=== PATIENT | male | born 1995 | race Caucasian/White ===

== ENCOUNTER 2016-11-09 12:04 | Emergency (ER) | payer BC ==
[2016-11-09 12:10] VITALS: O2SAT 98
--- NOTE | 2016-11-09 12:21 | EDPHY ---
H & P Stated Complaint: bca yesterday /5 pm fell inj l ribs/abd swelling?hematoma l lower abd Time Seen by Provider: 11/09/16 12:11 HPI/ROS: CHIEF COMPLAINT: Left rib pain and left abdominal pain HISTORY OF PRESENT ILLNESS: 21-year-old male generally healthy complaining of left-sided abdominal and left rib pain after he was at the [employer] yesterday at approximately 5:00 p.m., went off a jump and at a height of 10-15 feet and landed directly on his left side in the location of his lower ribs and left upper abdomen. He has abrasions to same location. Minimal pain at that time however over the evening and this morning he has noticed diffuse abdominal pain. He was helmeted and did impact his head with no loss of consciousness, no amnesia. Denies: Hematuria, dyspnea, neck pain or injury, peripheral paresthesia, nausea, vomiting, melena, hematochezia, bowel movement abnormality , weakness, numbness, genitalia or straddle injury. REVIEW OF SYSTEMS: A ten point review of systems was performed and is negative with the exception of the items mentioned in the HPI PAST MEDICAL/SURGICAL HISTORY: no anticoagulant use, no relevant medical/ surgical history SOCIAL HISTORY: Student PHYSICAL EXAM 1) GENERAL: Well-developed, well-nourished, alert and oriented. Appears to be in no acute distress. Answering questions appropriately. 2) HEAD: Normocephalic, atraumatic 3) HEENT: Pupils equal, round, reactive to light bilaterally. Negative Horners. Nasopharynx, oropharynx, clear. No deformity or angulation of nose. No septal hematoma. No rhinorrhea. No oral trauma. Ears bilaterally with normal tympanic membranes. No hemotympanum. No fluid or blood in the external auditory canal. No raccoon eyes. No Rocha sign. Teeth are normally aligned with no gross malocclusion, TMJ bilaterally nontender, facial bones nontender including the zygomatic arch, maxilla mandible. 4) NECK: No cervical collar is on. Posterior cervical spine is nontender, no stepoff, no effusion. Full range of motion which does not elicit any midline cervical spine pain, no posterior midline tenderness, no step-off. 5) LUNGS: Clear to auscultation bilaterally, no wheezes, no rhonchi, no retractions. No obvious signs of trauma. No chest wall pain. No flaring, no grunting. Moving symmetrically. No crepitus. 6) HEART: Regular rate and rhythm, 7) ABDOMEN: No guarding, tender to palpation left upper and left lower abdomen. Left flank and left abdominal abrasion. 8) MUSCULOSKELETAL: Moving all extremities, no focal areas of tenderness, no obvious trauma. 9) BACK: Abrasion to the left posterior ribs with no midline pain. No midline vertebral tenderness, no fluctuance, no step-off, no obvious trauma, no visual or palpable abnormality. 10) SKIN: No laceration. DIFFERENTIAL DIAGNOSIS: in no particular order including but not limited to splenic fracture spina splenic contusion, renal contusion, renal fracture, pneumothorax, rib fracture - Personal History Current Tetanus/Diphtheria Vaccine: Yes - Medical/Surgical History Hx Asthma: No Hx Chronic Respiratory Disease: No Hx Diabetes: No Hx Cardiac Disease: No Hx Renal Disease: No Hx Cirrhosis: No Hx Alcoholism: No Hx HIV/AIDS: No Hx Splenectomy or Spleen Trauma: No Other PMH: None - Social History Smoking Status: Never smoked Constitutional: Initial Vital Signs Temperature (C) 36.5 C 11/09/16 12:05 Heart Rate 57 L 11/09/16 12:05 Respiratory Rate 16 11/09/16 12:05 Blood Pressure 126/74 H 11/09/16 12:05 O2 Sat (%) 98 11/09/16 12:05 O2 Delivery Mode Room Air Allergies/Adverse Reactions: No Known Allergies Allergy (Verified 11/09/16 12:04) Home Medications: Medication Instructions Recorded NK [No Known Home Meds] 03/22/16 ED Images - Male Images Male Torso Head Front/Back: 1 - Abrasion and pain 2 - Abrasion and pain Medical Decision Making - Diagnostics Imaging Results: Imaging Impressions Abdomen CT 11/09/16 12:18 Impression: 1. L5-S1 spondylolytic grade 1 spondylolisthesis, old pars defects. 2. No lumbar compression fractures. 3. No abdominal or pelvic organ laceration, hematoma, or splenic laceration. Findings and recommendations discussed with Emergency Department physician, Awais Lockwood PA-C at 1305 hours on November 09, 2016. Final report concurs with initial preliminary interpretation. Chest CT 11/09/16 12:18 Impression: 1. Normal CT chest with contrast. 2. No evidence of definite rib fracture. 3. No pneumothorax, pulmonary contusion or pleural effusion. Findings and recommendations discussed with Emergency Department physician, Awais Lockwood PA-C at 1319 hours on November 09, 2016. Final report concurs with initial preliminary interpretation. Images reviewed by myself ED Course/Re-evaluation: This patient was re-evaluated with serial exams most recently at 1:40 p.m.. Discussed his negative imaging results showing no evidence of splenic or renal injury, no rib fracture, no pneumo or hemothorax, no solid organ injury. I think the patient can be discharged. Will obtain urinalysis this is negative plan will be discharge. His pain is controlled. Usual and customary blunt abdominal and chest trauma precautions have been provided to him. Tylenol and Motrin for discomfort. He feels comfortable being discharged.Care and management in consultation with secondary supervising physician Dr George . - Data Points Laboratory Results: Laboratory Results 11/09/16 12:25 11/09/16 12:25 11/09/16 11/09/16 11/09/16 13:40 12:25 12:25 WBC RBC Hgb POC Hgb Hct POC Hct MCV MCH MCHC RDW Plt Count MPV Neut % (Auto) Lymph % (Auto) [place] % (Auto) Eos % (Auto) Baso % (Auto) Nucleat RBC Rel Count Absolute Neuts (auto) Absolute Lymphs (auto) Absolute Monos (auto) Absolute Eos (auto) Absolute Basos (auto) Absolute Nucleated RBC Immature Gran % Immature Gran # PT 12.5 SEC SEC (12.0-15.0) INR 0.94 (0.83-1.16) APTT 29.8 SEC SEC (23.0-38.0) POC Sodium Sodium 143 mEq/L mEq/L (134-144) POC Potassium Potassium 4.1 mEq/L mEq/L (3.5-5.2) POC Chloride Chloride 105 mEq/L mEq/L (97-110) Carbon Dioxide 26 mEq/l mEq/l (22-31) Anion Gap 12 mEq/L mEq/L (8-16) POC BUN BUN 21 mg/dL mg/dL (7-23) Creatinine 0.8 mg/dL mg/dL (0.7-1.3) POC Creatinine Estimated GFR > 60 Glucose 87 mg/dL mg/dL (70-100) POC Glucose Calcium 9.3 mg/dL mg/dL (8.5-10.4) Urine Color YELLOW Urine Appearance CLEAR Urine pH 7.0 (5.0-7.5) Ur Specific [place] > 1.035 H (1.002-1.030) Urine Protein NEGATIVE (NEGATIVE) Urine Ketones NEGATIVE (NEGATIVE) Urine Blood NEGATIVE (NEGATIVE) Urine Nitrate NEGATIVE (NEGATIVE) Urine Bilirubin NEGATIVE (NEGATIVE) Urine Urobilinogen NEGATIVE EU EU (0.2-1.0) Ur Leukocyte Esterase NEGATIVE (NEGATIVE) Urine RBC 1-3 /hpf /hpf (0-3) Urine WBC 1-3 /hpf /hpf (0-3) Ur Epithelial Cells NONE SEEN /lpf /lpf (NONE-1+) Urine Glucose NEGATIVE (NEGATIVE) 11/09/16 11/09/16 12:25 12:23 WBC 8.40 10^3/uL 10^3/uL (3.80-9.50) RBC 5.16 10^6/uL 10^6/uL (4.40-6.38) Hgb 15.2 g/dL g/dL (13.7-17.5) POC Hgb 16.0 gm/dL gm/dL (14.5-17.3) Hct 45.4 % % (40.0-51.0) POC Hct 47 % % (42.8-50.6) MCV 88.0 fL fL (81.5-99.8) MCH 29.5 pg pg (27.9-34.1) MCHC 33.5 g/dL g/dL (32.4-36.7) RDW 12.3 % % (11.5-15.2) Plt Count 214 10^3/uL 10^3/uL (150-400) MPV 9.9 fL fL (8.7-11.7) Neut % (Auto) 58.3 % % (39.3-74.2) Lymph % (Auto) 28.8 % % (15.0-45.0) [place] % (Auto) 10.1 % % (4.5-13.0) Eos % (Auto) 2.0 % % (0.6-7.6) Baso % (Auto) 0.6 % % (0.3-1.7) Nucleat RBC Rel Count 0.0 % % (0.0-0.2) Absolute Neuts (auto) 4.89 10^3/uL 10^3/uL (1.70-6.50) Absolute Lymphs (auto) 2.42 10^3/uL 10^3/uL (1.00-3.00) Absolute Monos (auto) 0.85 10^3/uL H 10^3/uL (0.30-0.80) Absolute Eos (auto) 0.17 10^3/uL 10^3/uL (0.03-0.40) Absolute Basos (auto) 0.05 10^3/uL 10^3/uL (0.02-0.10) Absolute Nucleated RBC 0.00 10^3/uL 10^3/uL (0-0.01) Immature Gran % 0.2 % % (0.0-1.1) Immature Gran # 0.02 10^3/uL 10^3/uL (0.00-0.10) PT INR APTT POC Sodium 142 mEq/L mEq/L (134-144) Sodium POC Potassium 3.9 mEq/L mEq/L (3.3-5.0) Potassium POC Chloride 103 mEq/L mEq/L (96-108) Chloride Carbon Dioxide Anion Gap POC BUN 21 mg/dL mg/dL (7-23) BUN Creatinine POC Creatinine 0.8 mg/dL mg/dL (0.8-1.5) Estimated GFR Glucose POC Glucose 90 mg/dL mg/dL (70-100) Calcium Urine Color Urine Appearance Urine pH Ur Specific [place] Urine Protein Urine Ketones Urine Blood Urine Nitrate Urine Bilirubin Urine Urobilinogen Ur Leukocyte Esterase Urine RBC Urine WBC Ur Epithelial Cells Urine Glucose Point of Care Test Results: 11/09/16 12:23 POC Sodium 142 POC Potassium 3.9 POC Chloride 103 POC BUN 21 POC Creatinine 0.8 POC Glucose 90 Departure - Departure Disposition: Home, Routine, Self-Care Clinical Impression: Abrasion of back Qualifiers: Encounter type: initial encounter Laterality: left Qualified Code(s): S20.412A - Abrasion of left back wall of thorax, initial encounter Abrasion of abdominal wall Qualifiers: Encounter type: initial encounter Qualified Code(s): S30.811A - Abrasion of abdominal wall, initial encounter Condition: Good Instructions: Acute Abdominal Pain (ED), Abrasion (ED) Additional Instructions: Return to the emergency department immediately if you develop new or worsening abdominal pain, if you develop shortness of breath, discoloration to urine or any other symptoms that concern you Referrals: KIM Marks,. [Primary Care Provider] - 1-2 days without fail
[2016-11-09 12:36] LABS: % IMMATURE GRANULYOCYTES 0.2 % (0.0-1.1); ABSOLUTE IMMATURE GRANULOCYTES 0.02 10^3/uL (0.00-0.10); ADD DIFF? NO; ADD MORPH? NO; ADD SCAN? NO; ATYPICAL LYMPHOCYTE FLAG 10 (0-99); FRAGMENT RBC FLAG 0 (0-99); HEMATOCRIT 45.4 % (40.0-51.0); HEMOGLOBIN 15.2 g/dL (13.7-17.5); LEFT SHIFT FLG 0 (0-99); LIPEMIA HEMOLYSIS FLAG 80 (0-99); MEAN CELL HEMOGLOBIN 29.5 pg (27.9-34.1); MEAN CELL HEMOGLOBIN CONCENTR. 33.5 g/dL (32.4-36.7); MEAN PLATELET VOLUME 9.9 fL (8.7-11.7); PLATELET CLUMPS FLAG 0 (0-99); PLATELET COUNT 214 10^3/uL (150-400); RED BLOOD CELL COUNT 5.16 10^6/uL (4.40-6.38); RED CELL DISTRIBUTION WIDTH 12.3 % (11.5-15.2)
[2016-11-09] MEDS ORDERED: IOPAMIDOL (ISOVUE-300) 100 ML BTL ONE (12:40)
[2016-11-09 12:50] LABS: ANION GAP 12 mEq/L (8-16); CALCIUM 9.3 mg/dL (8.5-10.4); CARBON DIOXIDE 26 mEq/l (22-31); CHLORIDE 105 mEq/L (97-110); CREATININE 0.8 mg/dL (0.7-1.3); GLOMERULAR FILTRATION RATE > 60; GLUCOSE 87 mg/dL (70-100); POTASSIUM 4.1 mEq/L (3.5-5.2); SODIUM 143 mEq/L (134-144)
[2016-11-09 12:52] LABS: INR 0.94 (0.83-1.16); PROTIME(PATIENT) 12.5 SEC (12.0-15.0)
[2016-11-09 12:53] LABS: APTT 29.8 SEC (23.0-38.0)
[2016-11-09 13:53] LABS: COLOR YELLOW; LEUKOCYTE ESTERASE,URINE NEGATIVE (NEGATIVE); NITRITE,URINE NEGATIVE (NEGATIVE)
[2016-11-09 14:18] VITALS: BP 122/68; PULSE 56; RESP 14; TEMP 97.9
== END 2016-11-09 14:25 | disposition home or self-care (01) ==
DX: S30.811A Abrasion of abdominal wall, initial encounter (principal); S20.412A Abrasion of left back wall of thorax, initial encounter; W17.89XA Other fall from one level to another, initial encounter; Y92.89 Other specified places as the place of occurrence of the external cause; Y99.8 Other external cause status; Y93.39 Activity, other involving climbing, rappelling and jumping off
CPT/HCPCS: 82947-QW; Q9967